=== PATIENT | female | born 1990 | race Two or more races ===

== ENCOUNTER 2019-09-06 13:28 | Observation (INO) ==
[2019-09-06] MEDS ORDERED: Lactated Ringers-OB Dept 1,000 ML ONE (14:48)
[2019-09-06] MEDS ORDERED: Lactated Ringers 500 ML PRIMARY IV ONE (15:00)
[2019-09-06] MEDS: Lactated Ringers 1,000 ML PRIMARY IV SCH ×2 (15:30→19:16)
[2019-09-06] MEDS ORDERED: LIDOCAINE W/ SODIUM BICARB 0.5 ML SYR SUBD PRN (16:53)
[2019-09-06] MEDS ORDERED: ONDANSETRON 4 MG/2 ML VIAL IVP PRN (16:53)
[2019-09-06] MEDS: NIFEdipine 10 MG CAPSULE PO SCH ×4 (17:31→23:16)
[2019-09-06] MEDS: BETAMET ACET/BETAMET NA PH 6 MG/1 ML - 5 ML IM SCH (17:33)
[2019-09-06 19:09] LABS: BASOPHILS # (AUTO) 0.02 10*3/UL; BASOPHILS % (AUTO) 0.2 % (0-1); EOSINOPHILS # (AUTO) 0.16 10*3/UL; EOSINOPHILS % (AUTO) 1.3 % (0-8); Hemoglobin [HGB] 13.5 g/dL (12.0-16.0); LYMPHOCYTES # (AUTO) 2.63 10*3/uL; MEAN CORPUSCULAR HGB CONC 32.9 g/dL (33-37); MEAN CORPUSCULAR VOLUME 88.6 FL (81-99); MEAN PLATELET VOLUME 8.8 FL (7.4-12.2); MONOCYTES # (AUTO) 0.53 10*3/UL (0.3-0.8); MONOCYTES % (AUTO) 4.2 % (5-15); NEUTROPHILS # (AUTO) 9.35 10*3/UL; NEUTROPHILS % (AUTO) 73.2 % (50-80); RED BLOOD COUNT 4.63 10^6/uL (4.20-5.40)
[2019-09-06 19:15] LABS: PLATELET MORPHOLOGY COMMENT NORMAL MORPHOLOGY (NORM); RBC MORPHOLOGY COMMENT NORMAL MORPHOLOGY (NORM); WBC MORPHOLOGY COMMENT NORMAL MORPHOLOGY (NORM)
[2019-09-06 19:21] LABS: BLOOD UREA NITROGEN 8 mg/dL (7-22); SERUM ALBUMIN 3.8 g/dL (3.5-4.8)
[2019-09-06] MEDS ORDERED: HYDROXYZINE PAMOATE 25 MG CAPSULE PO PRN (20:27)
[2019-09-06 22:07] LABS: BILIRUBIN,URINE NEGATIVE (NEG); CLARITY,URINE CLEAR (CLEAR); COLOR,URINE YELLOW; GLUCOSE, URINE (UA) NEGATIVE (NEG); OCCULT BLOOD,URINE NEGATIVE (NEG); PROTEIN,URINE NEGATIVE (NEG); UROBILINOGEN,URINE 0.2 mg/dL (0.2)
[2019-09-06 22:09] LABS: URINE SAMPLE TYPE CLEAN CATCH URINE
[2019-09-06 22:11] LABS: BACTERIA,URINE RARE; RBC,URINE 0-1 /hpf; SQUAMOUS EPITHELIAL CELL,UR FEW; WBC,URINE 0-1
[2019-09-06] MEDS ORDERED: fentaNYL Inj 100 MCG/2 ML VIAL ONE (23:27)
[2019-09-06] MEDS: fentaNYL Inj 100 MCG/2 ML VIAL IVP PRN (23:38)
[2019-09-07] MEDS: fentaNYL Inj 100 MCG/2 ML VIAL IVP PRN (01:52)
[2019-09-07] MEDS: Lactated Ringers 1,000 ML PRIMARY IV SCH ×2 (02:31→10:40)
[2019-09-07] MEDS: NIFEdipine 10 MG CAPSULE PO SCH ×4 (02:32→16:50)
[2019-09-07 05:21] VITALS: RESP 16
[2019-09-07] MEDS ORDERED: Prenatal Multivitamin Tab 1 TAB TAB PO SCH (09:00)
[2019-09-07] MEDS ORDERED: FAMOTIDINE 20 MG TABLET PO PRN (09:23)
[2019-09-07 13:40] VITALS: BP 120/67; TEMP 97.9; O2SAT 97
[2019-09-07] MEDS: BETAMET ACET/BETAMET NA PH 6 MG/1 ML - 5 ML IM SCH (17:34)
== END 2019-09-07 19:15 | disposition home or self-care (01) ==
LOC: OBOP 13:28 → OBIP 13:28
PROVIDERS: ADMIT Obstetrics & Gynecology; ATTEND Obstetrics & Gynecology

== ENCOUNTER 2019-09-16 04:11 | Inpatient (IN) ==
[2019-09-16] MEDS ORDERED: FAMOTIDINE 20 MG/2 ML VIAL IVP ONE (04:56)
[2019-09-16] MEDS ORDERED: Lactated Ringers 1,000 ML PRIMARY IV ONE (04:56)
[2019-09-16] MEDS ORDERED: CefOXitin Inj 2 GM in Sodium Chloride 0.9% 100 ML IV ONE (04:56)
[2019-09-16] MEDS ORDERED: CITRIC ACID/SODIUM CITRATE 30 ML CUP PO ONE (04:56)
[2019-09-16] MEDS ORDERED: Metoclopramide Inj 10 MG/2 ML VIAL IV ONE (04:56)
[2019-09-16] MEDS ORDERED: LIDOCAINE HCL 2 % 10 ML JELLY URO-JECT TOPICAL PRN (04:56)
[2019-09-16] MEDS ORDERED: Lactated Ringers 1,000 ML PRIMARY IV SCH (05:00)
[2019-09-16] MEDS ORDERED: Oxytocin 20 Units + LR 20 UNIT/1,000 ML BAG IV SCH ×2 (05:00→10:31)
[2019-09-16] MEDS ORDERED: LIDOCAINE W/ SODIUM BICARB 0.5 ML SYR SUBD PRN (05:04)
[2019-09-16 05:35] LABS: AMNI ROM POSITIVE (NEGATIVE)
[2019-09-16 05:35] LABS: Hematocrit [HCT] 36.9 % (37.0-47.0); Hemoglobin [HGB] 12.2 g/dL (12.0-16.0); MEAN CORPUSCULAR HGB CONC 33.1 g/dL (33-37); MEAN CORPUSCULAR VOLUME 89.3 FL (81-99); MEAN PLATELET VOLUME 8.9 FL (7.4-12.2); RED BLOOD COUNT 4.13 10^6/uL (4.20-5.40)
[2019-09-16] MEDS ORDERED: OXYTOCIN 10 UNIT/1 ML ONE (08:04)
[2019-09-16] MEDS ORDERED: fentaNYL Inj 100 MCG/2 ML VIAL ONE (08:19)
[2019-09-16] MEDS ORDERED: BUPIVACAINE 0.5% W/ EPI - 10 ML VIAL ONE (08:28)
[2019-09-16] MEDS ORDERED: BUPivacaine Inj 0.5% PF (5mg/ml) 10ml vial ONE (08:29)
[2019-09-16] MEDS ORDERED: TRANEXAMIC ACID 1,000 MG / 10 ML VIAL ONE (08:41)
[2019-09-16] MEDS ORDERED: Naloxone Inj 0.01 MG, Sodium Chloride 0.9% vial 1 ML IVP PRN ×2 (10:31)
[2019-09-16] MEDS ORDERED: diphenhydrAMINE 50 MG/1 ML VIAL IV PRN (10:31)
[2019-09-16] MEDS ORDERED: ONDANSETRON 4 MG/2 ML VIAL IVP PRN (10:31)
[2019-09-16] MEDS ORDERED: FAMOTIDINE 20 MG/2 ML VIAL IVP PRN (10:31)
[2019-09-16] MEDS ORDERED: diphenhydrAMINE 25 MG CAPSULE PO PRN (10:31)
[2019-09-16] MEDS ORDERED: CALCIUM CARBONATE 500 MG (TUMS) CHEWABLE TABLET PO PRN (10:31)
[2019-09-16] MEDS ORDERED: LANOLIN HPA 40 GM TUBE TOPICAL PRN (10:31)
[2019-09-16] MEDS ORDERED: BUTORPHANOL TARTRATE 2 MG/1 ML VIAL IVP PRN (10:31)
[2019-09-16] MEDS ORDERED: Nalbuphine Inj 20 MG/ML Ampule IVP PRN (10:31)
[2019-09-16] MEDS ORDERED: KETOROLAC 15 MG/1 ML VIAL ONE (11:13)
[2019-09-16] MEDS: KETOROLAC 15 MG/1 ML VIAL IVP SCH ×3 (11:13→22:32)
[2019-09-16] MEDS: D5-LR 1,000 ML PRIMARY IV SCH (11:39)
[2019-09-16] MEDS: oxyCODONE-ACETAMINOPHEN 5-325 TAB PO PRN ×3 (14:00→22:33)
[2019-09-17] MEDS: oxyCODONE-ACETAMINOPHEN 5-325 TAB PO PRN ×3 (04:31→17:28)
[2019-09-17 05:08] LABS: Hematocrit [HCT] 36.1 % (37.0-47.0); Hemoglobin [HGB] 11.7 g/dL (12.0-16.0); MEAN CORPUSCULAR HGB CONC 32.4 g/dL (33-37); MEAN CORPUSCULAR VOLUME 90.3 FL (81-99); MEAN PLATELET VOLUME 8.9 FL (7.4-12.2)
[2019-09-17] MEDS: Senna/Docusate Tab 1 TAB TAB PO SCH ×2 (09:47→20:51)
[2019-09-17] MEDS: IBUPROFEN 800 MG TABLET PO SCH ×2 (09:47→17:29)
[2019-09-17] MEDS: Prenatal Multivitamin Tab 1 TAB TAB PO SCH (09:47)
[2019-09-17] MEDS ORDERED: IBUPROFEN 800 MG TABLET PO SCH (16:30)
[2019-09-17] MEDS ORDERED: SIMETHICONE 80 MG TABLET PO PRN (17:05)
[2019-09-18] MEDS: IBUPROFEN 800 MG TABLET PO SCH ×3 (01:01→17:53)
[2019-09-18] MEDS: oxyCODONE-ACETAMINOPHEN 5-325 TAB PO PRN (08:03)
[2019-09-18] MEDS: Senna/Docusate Tab 1 TAB TAB PO SCH ×2 (08:03→21:04)
[2019-09-18] MEDS: Prenatal Multivitamin Tab 1 TAB TAB PO SCH (08:03)
[2019-09-19] MEDS: oxyCODONE-ACETAMINOPHEN 5-325 TAB PO PRN ×2 (00:43→10:32)
[2019-09-19] MEDS: IBUPROFEN 800 MG TABLET PO SCH ×2 (00:44→09:14)
[2019-09-19] MEDS: KETOROLAC 15 MG/1 ML VIAL IVP SCH (06:06)
[2019-09-19] MEDS: D5-LR 1,000 ML PRIMARY IV SCH (06:07)
[2019-09-19 08:15] VITALS: BP 113/78; RESP 18; TEMP 98.3; O2SAT 96
[2019-09-19] MEDS: Senna/Docusate Tab 1 TAB TAB PO SCH (09:13)
[2019-09-19] MEDS: Prenatal Multivitamin Tab 1 TAB TAB PO SCH (09:14)
== END 2019-09-19 12:25 | disposition home or self-care (01) | DRG 788 ==
LOC: OBOP 04:11 → OBIP 04:56
PROVIDERS: ADMIT Obstetrics & Gynecology; ATTEND Student in an Organized Health Care Education/Training Program